=== PATIENT | male | born 1980 | race Caucasian/White ===

== ENCOUNTER 2017-05-18 19:47 | Emergency (ER) | payer OTHER ==
[2017-05-18 19:54] VITALS: BMI 27.8
--- NOTE | 2017-05-18 20:25 | PDOC ---
History of Present Illness - General History Source: Patient Exam Limitations: No Limitations - History of Present Illness Initial Comments: 05/18/17 20:40 Patient is a 36 year old male with no significant past medical history who presents to the ED with complaints of fever, nausea, vomiting, and diarrhea. Patient reports he developed a subjective fever, nasal congestion, and a dry cough 2 weeks ago. He states he took tylenol over the course of 3 days and his fever subsided. He states he developed a burning sensation in his chest a week ago. Patient visited urgent care yesterday for present symptoms and was given antibiotics. Patient received a chest x ray with normal results yesterday. Since taking antibiotics, patient developed vomiting, diarrhea, and a subjective fever. Denies shortness of breath or chest pain. Denies dysuria or changes in urinary output. Denies ear pain or sore throat. Denies abdominal pain, hematochezia, or hematemesis. Denies any other symptoms. Denies recent travel. Denies smoking, alcohol or drug use. <Chris Vasquez - Last Filed: 05/18/17 20:40> <Joel Griffith - Last Filed: 05/18/17 23:14> - General Chief Complaint: Headache Stated Complaint: ALLERGIC REACTION Time Seen by Provider: 05/18/17 20:05 Past History <Chris Vasquez - Last Filed: 05/18/17 20:40> - Past Medical History Other medical history: none - Psycho/Social/Smoking Cessation Hx Anxiety: No Suicidal Ideation: No Smoking History: Never smoked Have you smoked in the past 12 months: No Information on smoking cessation initiated: No Hx Alcohol Use: No Drug/Substance Use Hx: No Substance Use Type: None <Joel Griffith - Last Filed: 05/18/17 23:14> - Past Medical History Allergies/Adverse Reactions: Allergies Allergy/AdvReac Type Severity Reaction Status Date / Time No Known Allergies Allergy Verified 05/18/17 19:49 Home Medications: Ambulatory Orders Albuterol 0.083% Nebulizer Teresa [Ventolin 0.083%] 1 neb NEB Q4H 05/18/17 Azithromycin [Zithromax -] 250 mg PO UTDICT 05/18/17 Benzonatate 100 mg PO TID 05/18/17 Levofloxacin [Levaquin] 750 mg PO DAILY #10 tablet 05/18/17 Review of Systems - Review of Systems Able to Perform ROS?: Yes Comments:: 05/18/17 20:40 GENERAL/CONSTITUTIONAL: + fever. No weakness. HEAD, EYES, EARS, NOSE AND THROAT:+ nasal congestion. No change in vision. No ear pain or discharge. No sore throat. CARDIOVASCULAR: + chest congestion. No chest pain or shortness of breath. RESPIRATORY:+ cough. No wheezing, or hemoptysis. GASTROINTESTINAL: + vomiting, diarrhea, nausea. No constipation. GENITOURINARY: No dysuria, frequency, or change in urination. MUSCULOSKELETAL: No joint or muscle swelling or pain. No neck or back pain. SKIN: No rash NEUROLOGIC: No headache, vertigo, loss of consciousness, or change in strength/ sensation. ENDOCRINE: No increased thirst. No abnormal weight change. HEMATOLOGIC/LYMPHATIC: No anemia, easy bleeding, or history of blood clots. ALLERGIC/IMMUNOLOGIC: No hives or skin allergy. All Other Systems: Reviewed and Negative <Chris Vasquez - Last Filed: 05/18/17 20:40> *Physical Exam - Vital Signs Last Vital Signs Temp Pulse Resp BP Pulse Ox 98.9 F 82 18 106/70 100 05/18/17 19:51 05/18/17 19:51 05/18/17 19:51 05/18/17 19:51 05/18/17 19:51 - Physical Exam Comments: 05/18/17 20:40 GENERAL: Awake, alert, and fully oriented, in no acute distress HEAD: No signs of trauma EYES: PERRLA, EOMI, sclera anicteric, conjunctiva clear ENT: Auricles normal inspection, hearing grossly normal, nares patent, oropharynx clear without exudates. Moist mucosa NECK: Normal ROM, supple, no lymphadenopathy, JVD, or masses LUNGS:+ coarse breath sounds throughout. No wheezes, and no crackles HEART: Regular rate and rhythm, normal S1 and S2, no murmurs, rubs or gallops ABDOMEN: Soft, nontender, normoactive bowel sounds. No guarding, no rebound. No masses EXTREMITIES: Normal range of motion, no edema. No clubbing or cyanosis. No cords, erythema, or tenderness NEUROLOGICAL: Normal speech SKIN: Warm, Dry, normal turgor, no rashes or lesions noted. <Chris Vasquez - Last Filed: 05/18/17 20:40> - Vital Signs Last Vital Signs Temp Pulse Resp BP Pulse Ox 98.9 F 82 18 106/70 100 05/18/17 19:51 05/18/17 19:51 05/18/17 19:51 05/18/17 19:51 05/18/17 19:51 <Joel Griffith - Last Filed: 05/18/17 23:14> ED Treatment Course - LABORATORY CBC & Chemistry Diagram: 05/18/17 20:40 05/18/17 20:40 <Joel Griffith - Last Filed: 05/18/17 23:14> Medical Decision Making - Medical Decision Making 05/18/17 20:40 Evaluated chest X-ray that patient received from urgent care yesterday from patients phone. Normal Results. <Chris Vasquez - Last Filed: 05/18/17 20:40> *DC/Admit/Observation/Transfer - Attestations Scribe Attestion: 05/18/17 20:40 Documentation prepared by Chris Vasquez, acting as medical grade shoemaker for Joel Griffith MD <Chris Vasquez - Last Filed: 05/18/17 20:40> - Discharge Dispostion Admit: No - Attestations Physician Attestion: 05/18/17 20:25 I, Dr. Joel Griffith, attest that this document has been prepared under my direction and personally reviewed by me in its entirety. I further attest, that it accurately reflects all work, treatment, procedures and medical decision -making performed by me. <Joel Griffith - Last Filed: 05/18/17 23:14> Diagnosis at time of Disposition: Acute bronchitis Qualifiers: Bronchitis organism: unspecified organism Qualified Code(s): J20.9 - Acute bronchitis, unspecified - Discharge Dispostion Disposition: HOME Condition at time of disposition: Good - Prescriptions Prescriptions: Levofloxacin [Levaquin] 750 mg PO DAILY #10 tablet - Referrals Referrals: Minna Montelongo MD [Primary Care Provider] - - Patient Instructions Printed Discharge Instructions: Acute Bronchitis, DI for Acute Bronchitis Additional Instructions: Luiz, Sorry you are so sick with this. Stop the Zithromax you got at [facility] . I need you to drink 5 twenty ounce bottles of water a day while you are on the antibiotics. Don't take the benzonate unless you are coughing your head off. Take Motrin 600-800 every 8 hours to keep the fever away. Keep tylenol in reserve. Take 1000 mg every 4 hours if you get a fever. I hope you feel better soon. Best- Dr. Joel Griffith It was meeting the two of you...... best of everything! - Post Discharge Activity Work/School Note: Back to Work
[2017-05-18] MEDS ORDERED: SODIUM CHLORIDE 0.9% 1000 ML INFUS.BAG IV STA (20:39)
[2017-05-18 20:55] LABS: BASOPHIL 0.9 % (0-2.0); EOSINOPHIL 0.6 % (0-4.5); MCH 30.1 pg (25.7-33.7); MCHC 33.6 g/dl (32.0-35.9); MEAN CELL VOLUME 89.6 fl (80-96); MEAN PLT VOLUME 9.1 fl (7.5-11.1); NEUTROPHILS 80.1 % (42.8-82.8); PLATELET COUNT 325 K/MM3 (134-434); RDW 12.9 % (11.9-15.9); WHITE BLOOD COUNT 18.8 K/mm3 (4.0-10.0)
[2017-05-18 21:06] LABS: INR 1.3 (0.82-1.09); PROTHROMBIN TIME (PATIENT) 14.4 SEC (9.98-11.88)
[2017-05-18 21:16] LABS: URINE APPEARANCE CLEAR; URINE BILIRUBIN NEGATIVE (NEGATIVE); URINE BLOOD NEGATIVE (NEGATIVE); URINE COLOR AMBER; URINE GLUCOSE (UA) NEGATIVE (NEGATIVE); URINE KETONE TRACE (NEGATIVE); URINE LEUK ESTERASE NEGATIVE (NEGATIVE); URINE NITRITE NEGATIVE (NEGATIVE); URINE PROTEIN 1+ (NEGATIVE); URINE UROBILINOGEN NEGATIVE E.U./dl (0.2-1.0)
[2017-05-18 21:20] LABS: URINE MUCUS MANY; URINE RBC <1 /hpf (0-3); URINE WBC 1 /hpf (3-5)
[2017-05-18 21:21] LABS: ALBUMIN 3.8 g/dl (3.4-5.0); ALK PHOS 125 U/L (45-117); ANION GAP 8 (8-16); BILIRUBIN,TOTAL 0.4 mg/dL (0.2-1.0); CALCIUM 8.9 mg/dL (8.5-10.1); CO2 29 mmol/L (21-32); CREATININE 1.1 mg/dL (0.7-1.3); GLUCOSE,RANDOM 90 mg/dL (74-106); SGOT/AST 30 U/L (15-37); SGPT/ALT 39 U/L (12-78); TOT PROT 8.2 g/dl (6.4-8.2)
[2017-05-18] MEDS ORDERED: cefTRIAXone 1 GM/50 ML BAG (PRE-DOCKED) IVPB ONE (22:23)
[2017-05-18] MEDS ORDERED: AZITHROMYCIN IVPB 500 MG in DEXTROSE 5%-WATER - 250 ML IVPB ONE (22:23)
[2017-05-18] MEDS ORDERED: AZITHROMYCIN IVPB 250 ML IVPB ONE (22:34)
[2017-05-18] MEDS ORDERED: CEFTRIAXONE 50 ML ONE (22:35)
[2017-05-18 23:32] VITALS: TEMP 98.3
[2017-05-19 00:33] VITALS: BP 116/63; PULSE 99
== END 2017-05-19 00:35 | disposition home or self-care (01) ==
LOC: JER 19:47
DX: J20.9 Acute bronchitis, unspecified (principal)
CPT/HCPCS: 36415; 80053; 81003; 81015; 83605; 85025; 85610; 85730; 87040; 96365; 96375; 99284-25

== ENCOUNTER 2017-08-10 08:13 | Emergency (ER) | payer OTHER ==
[2017-08-10 08:17] VITALS: BP 122/70; PULSE 65; TEMP 98.2; BMI 27.5
--- NOTE | 2017-08-10 08:40 | PDOC ---
History of Present Illness - General Chief Complaint: Rash Stated Complaint: REDNESS TO AFFECTED AREA Time Seen by Provider: 08/10/17 08:27 History Source: Patient Exam Limitations: No Limitations - History of Present Illness Initial Comments: 08/10/17 08:39 36 yr male with c/o redness and itching to tip of penis for one week. Pt states he had "herpes" to lip last week. Pt denies urianry complaints no penile discharge, no abd pain or fever. no history of STD. Pt is sexually active with one female partner. Timing/Duration: reports: week Severity: Yes: mild Location: reports: genitalia Respiratory Risk Factors: reports: no cause identified Past History - Past Medical History Allergies/Adverse Reactions: Allergies Allergy/AdvReac Type Severity Reaction Status Date / Time No Known Allergies Allergy Verified 08/10/17 08:17 Home Medications: Ambulatory Orders Clotrimazole [Clotrimazole AF] 28 gm TP BID #1 tube 08/10/17 - Psycho/Social/Smoking Cessation Hx Anxiety: No Suicidal Ideation: No Smoking History: Never smoked Have you smoked in the past 12 months: No Information on smoking cessation initiated: No Hx Alcohol Use: No Drug/Substance Use Hx: No Substance Use Type: None Review of Systems - Review of Systems Able to Perform ROS?: Yes Is the patient limited Sinhala proficient: No Constitutional: No: Symptoms Reported HEENTM: No: Symptoms Reported Respiratory: No: Symptoms reported Cardiac (ROS): No: Symptoms Reported *Physical Exam - Vital Signs Last Vital Signs Temp Pulse Resp BP Pulse Ox 98.2 F 65 18 122/70 98 08/10/17 08:14 08/10/17 08:14 08/10/17 08:14 08/10/17 08:14 08/10/17 08:14 - Physical Exam General Appearance: Yes: Nourished, Appropriately Dressed HEENT: positive: EOMI, CULLEN Neck: positive: Supple Respiratory/Chest: positive: Lungs Clear, Normal Breath Sounds Gastrointestinal/Abdominal: positive: Normal Bowel Sounds, Soft Male Genitalia: positive: normal genitalia. negative: discharge, testicular tenderness (head of penis with red maculopaular, white patches, no ulcers ), testicular mass Musculoskeletal: positive: Normal Inspection Extremity: positive: Normal Capillary Refill, Normal Inspection, Normal Range of Motion Integumentary: positive: Normal Color, Dry, Warm Neurologic: positive: intelligence officer II-XII NML intact, Fully Oriented, Alert, Normal Mood/ Affect Medical Decision Making - Medical Decision Making 08/10/17 14:53 cc: itchy rash to head of penis no discharge or drainage red bumps with white patches consistent with balanitis guanako will treat with clotrimazole. pt is circumsised dc inst justiceegeine discussed *DC/Admit/Observation/Transfer Diagnosis at time of Disposition: Candidal balanitis - Discharge Dispostion Disposition: HOME Condition at time of disposition: Good - Prescriptions Prescriptions: Clotrimazole [Clotrimazole AF] 28 gm TP BID #1 tube - Referrals Referrals: Minna Montelongo MD [Primary Care Provider] - - Patient Instructions Additional Instructions: keep the area clean and dry apply the cream as directed to the rash follow with your doctor if symptoms worsen or persist no sexual activity until symptoms have improved
[2017-08-10 09:03] LABS: URINE APPEARANCE CLEAR; URINE BILIRUBIN NEGATIVE (NEGATIVE); URINE BLOOD NEGATIVE (NEGATIVE); URINE COLOR LTYELLOW; URINE GLUCOSE (UA) NEGATIVE (NEGATIVE); URINE KETONE NEGATIVE (NEGATIVE); URINE LEUK ESTERASE NEGATIVE (NEGATIVE); URINE NITRITE NEGATIVE (NEGATIVE); URINE PROTEIN NEGATIVE (NEGATIVE); URINE UROBILINOGEN NEGATIVE mg/dL (0.2-1.0)
== END 2017-08-10 09:04 | disposition home or self-care (01) ==
LOC: JERFT 08:13
DX: B37.42 Candidal balanitis (principal)
CPT/HCPCS: 36415; 81003; 87086; 87252; 87491; 87591; 99281-25